=== PATIENT | female | born 1990 | race Caucasian/White ===

== ENCOUNTER → 2019-04-25 | Outpatient (CLI) | payer SELFPAY | LOC: LAB 18:05 → LAB SHORT 18:05 | PROVIDERS: Registered Nurse Community Health | DX: Z12.4 Encounter for screening for malignant neoplasm of cervix (principal) | CPT/HCPCS: G0123 ==

== ENCOUNTER 2023-01-13 11:07 | Day surgery (SDC) | payer BC ==
[~2023-01-13] VITALS: Ht 180.3 cm; Wt 89.3 kg
[2023-01-13 13:19] VITALS: BP 112/75
== END 2023-01-13 13:55 | disposition home or self-care (01) ==
LOC: ORSCSDS 11:07
PROVIDERS: Orthopaedic Surgery
PROC: 0JPV0HZ Removal of Contraceptive Device from Upper Extremity Subcutaneous Tissue and Fascia, Open Approach (ICD-10-PCS; principal; 2023-01-13 12:30)
DX: Z45.89 Encounter for adjustment and management of other implanted devices (principal); Z30.46 Encounter for surveillance of implantable subdermal contraceptive
CPT/HCPCS: J0690; J1100; J2001; J2250; J2405; J2704; J3010; J7120

== ENCOUNTER 2024-03-26 20:28 | Inpatient (IN) | payer BC ==
[~2024-03-26] VITALS: Ht 180.3 cm; Wt 110.0 kg
[2024-03-26 22:49] VITALS: BP 126/81
[2024-03-26] MEDS ORDERED: Lactated Ringer's 1,000 ML IV SCH (23:50)
[2024-03-26] MEDS ORDERED: Misoprostol 25 MCG Tab VAG PRN (23:50)
[2024-03-26] MEDS ORDERED: Lactated Ringer's 1,000 ML IV PRN (23:55)
[2024-03-26] MEDS ORDERED: FentaNYL Citrate 50 MCG/ML 2 ML Injection IV PRN (23:55)
[2024-03-26] MEDS ORDERED: Methylergonovine Maleate 0.2MG / ML 1ML Amp IM PRN (23:55)
[2024-03-26] MEDS ORDERED: Carboprost Tromethamine 250 MCG/ML 1ML Amp IM PRN (23:55)
[2024-03-26] MEDS ORDERED: Acetaminophen 500 MG Tab PO PRN (23:55)
[2024-03-26] MEDS ORDERED: Calcium Carbonate 500 MG Tab Chew PO PRN (23:55)
[2024-03-26] MEDS ORDERED: Misoprostol 200 MCG Tab PR PRN (23:55)
[2024-03-26] MEDS ORDERED: Ondansetron HCl 2 MG / ML 2ML Vial IV PRN (23:55)
[2024-03-26] MEDS ORDERED: OXYTOCIN/RINGER'S LACTATE 500 ML IV SCH (23:55)
[2024-03-26] MEDS ORDERED: Misoprostol 200 MCG Tab XX PRN (23:55)
[2024-03-26] MEDS ORDERED: Oxytocin 10 Unit / ML Vial IM PRN (23:55)
[2024-03-27] VITALS (32 sets, daily range): BP systolic 112–146; BP diastolic 55–91
[2024-03-27] MEDS ORDERED: Tranexamic Acid 100 ML IV PRN (00:05)
[2024-03-27] MEDS ORDERED: PRENATAL TABLE1 EAC2 PO (00:15)
[2024-03-27] MEDS ORDERED: MAGCHL64ER (00:16)
[2024-03-27] MEDS ORDERED: EVENING PRIMR1300 MG PO (00:16)
[2024-03-27 01:23] LABS: BASOPHILS ABSOLUTE AUTO 0.04 K/mm3 (0.00-0.23); BASOPHILS PERCENT AUTO 0 % (0-2); EOSINOPHILS PERCENT AUTO 2 % (0-6); Hemoglobin 14.2 g/dL (11.5-16.0); IMMATURE GRAN ABSOLUTE AUTO 0.08 K/mm3 (0.00-0.10); IMMATURE GRAN PERCENT AUTO 1 % (0-1); LYMPHOCYTES ABSOLUTE AUTO 2.09 K/mm3 (0.84-5.20); LYMPHOCYTES PERCENT AUTO 16 % (21-46); MONOCYTES ABSOLUTE AUTO 0.71 K/mm3 (0.16-1.47); MONOCYTES PERCENT AUTO 6 % (4-13); Mean Corpuscular HGB 27.4 pg (26.0-34.0); Mean Corpuscular HGB Conc 33.8 g/dL (31.5-36.5); Mean Corpuscular Volume 81 fL (80-100); NEUTROPHILS ABSOLUTE AUTO 9.61 K/mm3 (1.96-9.15); NEUTROPHILS PERCENT AUTO 76 % (41-73); Platelet Count 224 K/mm3 (150-400); RDW Standard Deviation 40.7 fL (35.1-46.3); Red Blood Cell Count 5.19 M/mm3 (3.80-5.20); White Blood Cell Count 12.73 K/mm3 (4.00-11.30)
[2024-03-27] MEDS ORDERED: Lactated Ringer's 1,000 ML IV SCH ×3 (09:55→20:20)
[2024-03-27] MEDS ORDERED: ePHEDrine Sulfate 50 MG/ML 1ML Injection XX PRN (09:55)
[2024-03-27] MEDS ORDERED: FentaNYL 2mcg/ml-Bup 0.1% Epd 250 ML EPI PRN (09:55)
[2024-03-27] MEDS ORDERED: OXYTOCIN/RINGER'S LACTATE 500 ML IV SCH ×3 (12:30→20:15)
[2024-03-27] MEDS ORDERED: Benzocaine Topical Anesthetic Spray 60GM TOP PRN (20:15)
[2024-03-27] MEDS ORDERED: Acetaminophen 325 MG TABLET PO PRN (20:15)
[2024-03-27] MEDS ORDERED: Misoprostol 200 MCG Tab PR PRN (20:20)
[2024-03-27] MEDS ORDERED: Witch Hazel/Glycerin PADS TOP PRN (20:20)
[2024-03-27] MEDS ORDERED: Ibuprofen 400 MG Tab PO PRN (20:20)
[2024-03-27] MEDS ORDERED: Methylergonovine Maleate 0.2MG / ML 1ML Amp IM PRN (20:20)
[2024-03-27] MEDS ORDERED: Ketorolac Tromethamine 30mg Vial IV SCH (21:00)
[2024-03-28 02:16] VITALS: BP 125/76
[2024-03-28 05:41] VITALS: BP 131/76
[2024-03-28 06:55] LABS: BASOPHILS ABSOLUTE AUTO 0.03 K/mm3 (0.00-0.23); BASOPHILS PERCENT AUTO 0 % (0-2); EOSINOPHILS ABSOLUTE AUTO 0.09 K/mm3 (0.00-0.68); EOSINOPHILS PERCENT AUTO 1 % (0-6); Hematocrit 36.2 % (33.0-51.0); Hemoglobin 12.4 g/dL (11.5-16.0); IMMATURE GRAN ABSOLUTE AUTO 0.06 K/mm3 (0.00-0.10); IMMATURE GRAN PERCENT AUTO 0 % (0-1); LYMPHOCYTES ABSOLUTE AUTO 1.59 K/mm3 (0.84-5.20); LYMPHOCYTES PERCENT AUTO 10 % (21-46); MONOCYTES ABSOLUTE AUTO 0.67 K/mm3 (0.16-1.47); MONOCYTES PERCENT AUTO 4 % (4-13); Mean Corpuscular HGB 27.9 pg (26.0-34.0); Mean Corpuscular HGB Conc 34.3 g/dL (31.5-36.5); Mean Corpuscular Volume 81 fL (80-100); Mean Platelet Volume 10.5 fL (9.1-12.4); NEUTROPHILS ABSOLUTE AUTO 13.42 K/mm3 (1.96-9.15); NEUTROPHILS PERCENT AUTO 85 % (41-73); Platelet Count 174 K/mm3 (150-400); RDW Coefficient Variation 14.2 % (11.7-14.2); RDW Standard Deviation 41.1 fL (35.1-46.3); Red Blood Cell Count 4.45 M/mm3 (3.80-5.20); White Blood Cell Count 15.86 K/mm3 (4.00-11.30)
[2024-03-28] MEDS ORDERED: Prenatal Vit/FE Fumarate/FA 1 Tab PO SCH (09:00)
--- NOTE | 2024-03-28 13:10 | NUR ---
0725 AND 0827 ROUNDING DONE AND PT IN ROOM SLEEPING IN BED WITH LIGHTS OFF
[2024-03-28 14:31] VITALS: BP 137/75
--- NOTE | 2024-03-28 15:38 | NUR ---
1440-PT AND SIGNIFICANT OTHER WALKING IN [facility]ALLWAYS WITH IN [facility]
[2024-03-28] MEDS ORDERED: IBU800 MG PO (19:22)
[2024-03-28] MEDS ORDERED: ACET500 PO (19:23)
[2024-03-28 19:25] VITALS: BP 133/84
--- NOTE | 2024-03-28 21:17 | NUR ---
DISCHARGE NOTE; PT TO DC NOW. BLEEDING IS STABLE, VITALS ARE WNL. DISCHARGE TEACHING GIVEN, PT DENIES ANY FURTHER QUESTIONS AT THIS TIME. PT GIVEN DISCHARGE FOLDER WITH PAMPLETS ON PP INFORMATION. PT GIVEN PPFU APPT CARD AND INSTRUCTED TO ARRIVE TO [facility] 15 MINUTES PRIOR TO FOLLOW UP APPT.
== END 2024-03-28 21:40 | disposition home or self-care (01) | DRG 807 ==
LOC: OBS 20:28 → BC 20:31 → OBS 20:45 → BC 23:14
PROVIDERS: ADMIT Obstetrics & Gynecology
PROC: 10E0XZZ Delivery of Products of Conception, External Approach (ICD-10-PCS; principal; 2024-03-27)
PROC: 0HQ9XZZ Repair Perineum Skin, External Approach (ICD-10-PCS; 2024-03-27)
PROC: 3E0R3BZ Introduction of Anesthetic Agent into Spinal Canal, Percutaneous Approach (ICD-10-PCS; 2024-03-27)
PROC: 00HU33Z Insertion of Infusion Device into Spinal Canal, Percutaneous Approach (ICD-10-PCS; 2024-03-27)
DX: O48.0 Post-term pregnancy (principal); Z37.0 Single live birth; Z3A.42 42 weeks gestation of pregnancy; O70.0 First degree perineal laceration during delivery; Z91.018 Allergy to other foods
CPT/HCPCS: 36415; 51702; 85025; 86850; 86900; 86901; A9270; J1885; J2405; J2590; J7120